=== PATIENT | female | born 2000 | race Caucasian/White ===

== ENCOUNTER 2025-05-24 09:18 | Outpatient (AMB) | payer MEDICAID, SELFPAY ==
[2025-05-24 09:30] VITALS: BP 110/65; PULSE 73; RESP 16; TEMP 36.2; O2SAT 98; BMI 19.7
--- NOTE | 2025-05-24 09:30 | AMB.OBINITIA ---
Vital Signs 05/24/25 09:30 Height 1.78 m Height Method Stated Weight 62.369 kg Weight Measurement Method Standing Scale BMI 19.7 BP 110/65 Blood Pressure Source Automatic Cuff Blood Pressure Location Left Upper Arm Position Sitting Respiration 16 Pulse 73 Pulse Source Monitor Temp 97.2 F Temp Source Oral Pulse Oximetry (%) 98 Oxygen Delivery Method Room Air Allergies/Home Meds Allergies & Medications Allergies No Known Allergies Allergy (Verified 05/24/25 09:34) Medication Reconciliation vits no.130-ferrous fum 27 mg iron-folic acid 800 mcg tablet ( Vitamin) 1 tab PO QDAY pregancy #60 tabs 05/24/25 [Rx] Intake Visit Data Collection New Patient or Established: New Patient (never been to [facility]) Reason for Visit:: OBI Seen by Clinical Staff ONLY (RN/MA): No Invasive Cardiologist Required: No Do You Feel Safe at Home: Yes Authorities Contacted: N/A PCP or OBGYN visit in last 3 months: Yes Hx Now: Yes Are you currently on any form of Control: No Last menstrual period: 03/02/25 Pain Present Currently: No Pain Scale Used: Bravo-Howard/Numerical Pain scale:: 0 Smoking Status Smoking Status: Never smoker Questionnaires Covid-19 Vaccine Questionnaire Has patient been vacinated for Covid-19 Have you been vacinated for Covid-19: Yes PHQ-9 PHQ-2 Over the last 2 weeks, how often have you been bothered by any of the following problems? 1. Little interest or pleasure in doing things: not at all 2. Feeling down, depressed, or hopeless: not at all Total score: 0 PHQ-9 3. Trouble falling or staying asleep, or sleeping too much: Not at all 4. Feeling tired or having little energy: Not at all 5. Poor appetite or overeating: Not at all 6. Feeling bad about yourself - or that you are a failure or have let yourself or your family down: Not at all 7. Trouble concentrating on things, such as reading the newspaper or watching television: Not at all 8. Moving or speaking so slowly that other people could have noticed? - Or the opposite - being so fidgety or restless that you have been moving around a lot more than usual: not at all 9. Thoughts that you would be better off or of hurting yourself in some way: Not at all Total score: 0 If you checked off any problems, how difficult have these problems made it for you to do your work, take care of things at home, or get along with other people?: not difficult at all Source: Developed by Drs. Lucas Wood, Karon Stiles, Manolo Villarreal and colleagues, with an educational brandon from [employer]. Depression screen completed yes Social History Living Situation History Marital Status: Lives With: Family Housing: House Tobacco History Smoking Status: Never smoker Second Hand Smoke Exposure: No Domestic Abuse History Do You Feel Safe at Home: Yes History of Present Illness HPI Narrative 24-year-old 1 para 0 for OBI. Last period March 02, 2025. Estimated due date December 07, 2025. Unplanned but patient and partner are happy. Denies SAB complaints. Patient feels tired but overall she is doing well. Denies social habits. Denies surgery. Denies chronic illness. Patient is taking vitamins and folic acid. Patient works in the [employer] Initial Visit Menstrual History Menstrual reliability: definite Flow: normal Menstrual regularity: regular Monthly: Yes Age at menarche: 14 On control pills at conception: No OB History : 1 Para: 0 Hx # Pregnancies: 0 Hx Total # of Abortions (Spontaneous & Elective): 0 # of Living Children: 0 Infection History & Risk Evaluation History of STDs: none HIV risk evaluation: low risk Hepatitis B risk evaluation: low risk Patient or partner has history of Genital Herpes: No Varicella/chicken pox status: immunized Genetic Screening & History Genetic Screening/Teratology Counseling - Includes patient, baby's father, or anyone in either family with: 1. Patient's age 35 years or older as of estimated date of delivery: No 2. Thalassemia (Portuguese, Russian, Mediterranean, or Background); MCV less than 80: No 3. Neural Tube Defect (Meningomyelocele, Spina Bifida, or Anencephaly): No 4. Congenital Heart Defect: No 5. Down Syndrome: No 6. Cipriano-Sachs (Ashkenazi Temple, Cajun, [place]gu[place] Hungarian): No 7. Brenda Disease (Ashkenazi Temple): No 8. Familial Dysautonomia (Ashkenazi Temple): No 9. Sickle Cell Disease or Trait (): No 10. Hemophilia or other blood disorders: No 11. Muscular Dystrophy: No 12. Cystic Fibrosis: No 13. Menard's Chorea: No 14. Mental Retardation/Autism: No 15. Other inherited genetic or chromosomal disorder: No 16. Maternal Metabolic Disorder (EG,TYPE 1 Diabetes, PKU): No 17. Patient or baby's father had a child with defects not listed above: No 18. Recurrent loss or a stillbirth: No 19. Medications (including supplements, vitamins, herbs or otc drugs)/illicit/recreational drugs/alcohol since last menstrual period: No 20. Any other: No Infection History 1. Live with someone with TB or exposed to TB: No 2. Rash or viral illness since last menstrual period: No 3. Hepatitis B,C: No Other (see comments) Source: [employer] Review of Systems Review of Systems Systems Reviewed: All systems reviewed, normal except as documented Exam General Limitations: no limitations General Appearance: alert, in no apparent distress, comfortable, cooperative, healthy appearing, well developed and well groomed Head Head exam: atraumatic, normocephalic and normal inspection Resp Respiratory exam: Present normal lung sounds bilaterally Card Cardiovascular exam: Present regular rate, normal rhythm and normal heart sounds Abdominal Abdominal exam: Present soft and normal bowel sounds Psych Psychiatric exam: Present normal affect and normal mood Office Procedures OB Clinic LOC & Office Proc's Nursing/Assessment Patient Status: Initial/New Patient OB Clinic Nursing Assessment: Medication Reconciliation, Update PMH in EMR and Vital Signs OB Clinic Coordination of Care: Education Complex Pt/Fam, Consent,records obtained, informed consent, Lab and Imaging orders, Results/Orders obtained and Staff clarify orders Special Needs: Heart tones and Language special needs New Patient Charge New Patient Point Assignment: [id number] New Patient Point Charge: CONTRACT LAW SPECIALIST Level 3 ([id number]) Assessment & Plan Diagnosis / Problem List (1) Encounter for supervision of high risk in first trimester, antepartum: Status: Acute Plan Schedule M appointment with Dr. Mcdonough. For anatomy scan. NIPT with carrier screen, A1c and OB panel today. Discussed comfort measures for first trimester discomforts. Discussed SAB precautions. Discussed diet and weight. May refill vitamins. Return in 4 weeks OB check
== END 2025-05-24 10:12 | disposition home or self-care (01) ==
LOC: HODSOBC 09:18
PROVIDERS: Supervising Provider Advanced Practice Midwife; Visit Provider Advanced Practice Midwife
DX: O09.891 Supervision of other high risk pregnancies, first trimester (principal); Z3A.00 Weeks of gestation of pregnancy not specified
CPT/HCPCS: 99203; G0463

== ENCOUNTER 2025-06-21 15:17 | Outpatient (AMB) | payer MEDICAID, SELFPAY ==
[2025-06-21 15:37] VITALS: BP 106/69; PULSE 70; RESP 17; TEMP 36.7; O2SAT 99; BMI 20.2
--- NOTE | 2025-06-21 15:37 | OBCLNT_ITS ---
Vital Signs 06/21/25 15:37 Height 1.78 m Height Method Stated Weight 64.07 kg Weight Measurement Method Standing Scale BMI 20.2 BP 106/69 Blood Pressure Source Automatic Cuff Blood Pressure Location Right Upper Arm Position Sitting Respiration 17 Pulse 70 Pulse Source Monitor Temp 98.0 F Temp Source Temporal Artery Scan Pulse Oximetry (%) 99 Oxygen Delivery Method Room Air Allergies/Home Meds Allergies & Medications Allergies No Known Allergies Allergy (Verified 06/21/25 15:38) Medication Reconciliation vits no.130-ferrous fum 27 mg iron-folic acid 800 mcg tablet ( Vitamin) 1 tab PO QDAY pregancy #60 tabs 05/24/25 [Rx Confirmed 06/21/25] Intake Visit Data Collection New Patient or Established: Established Patient (seen at [facility] within 3 years) Reason for Visit:: OBC Seen by Clinical Staff ONLY (RN/MA): No Air Conditioning Technician Required: No Do You Feel Safe at Home: Yes Authorities Contacted: N/A PCP or OBGYN visit in last 3 months: Yes Hx Now: Yes Are you currently on any form of Control: No Pain Present Currently: No Pain Scale Used: Bravo-Howard/Numerical Pain scale:: 0 Smoking Status Smoking Status: Never smoker Questionnaires Covid-19 Vaccine Questionnaire Has patient been vacinated for Covid-19 Have you been vacinated for Covid-19: Yes PHQ-9 PHQ-2 Over the last 2 weeks, how often have you been bothered by any of the following problems? 1. Little interest or pleasure in doing things: not at all 2. Feeling down, depressed, or hopeless: not at all Total score: 0 PHQ-9 3. Trouble falling or staying asleep, or sleeping too much: Not at all 4. Feeling tired or having little energy: Not at all 5. Poor appetite or overeating: Not at all 6. Feeling bad about yourself - or that you are a failure or have let yourself or your family down: Not at all 7. Trouble concentrating on things, such as reading the newspaper or watching television: Not at all 8. Moving or speaking so slowly that other people could have noticed? - Or the opposite - being so fidgety or restless that you have been moving around a lot more than usual: not at all 9. Thoughts that you would be better off or of hurting yourself in some way: Not at all Total score: 0 If you checked off any problems, how difficult have these problems made it for you to do your work, take care of things at home, or get along with other people?: not difficult at all Source: Developed by Drs. Lucas Wood, Karon Stiles, Manolo Villarreal and colleagues, with an educational brandon from [employer]. Depression screen completed yes Social History Living Situation History Marital Status: Lives With: Family Housing: House Tobacco History Smoking Status: Never smoker Second Hand Smoke Exposure: No Alcohol History Alcohol Intake: Never Domestic Abuse History Do You Feel Safe at Home: Yes Care OB Visit Log OB Flowsheet Initial Weight: Not Recorded Date -?-?-?-?-?-?-?-?-?-?-?-?- EGA Weight BP Alb Glu CTX Pres Fundal ht FHR Mov Dilation Station Effacement Hx Notes Visit Note 05/24/25 -?-?-?-?-?-?-?-?-?-?-?-?- 11w 6d 62.369 kg 110/65 absent unknown 11 154 absent 24-year-old 1 para 0 for OBI. Her last period is March 02, 2025. Estimated due date December 07, 2025. Patient denies leaking, bleeding, contractions Schedule with Dr. Mcdonough for OB scan. OB panel with hemoglobin A1c and carrier screens today. Discussed SAB signs and symptoms and precautions. Continue prenatals which were refilled 06/21/25 -?-?-?-?-?-?-?-?-?-?-?-?- 15w 6d 64.07 kg 106/69 absent unknown 15 154 absent No OB complaints. Doing well. Maternal- medicine appointment is pending aFP today. Reviewed labs. Follow-up on M appointment. Discussed SAB precautions. Return in 4 weeks OB check MARISOL Calculator Estimated Delivery Date Method Current WG Current Estimate 12/07/25 LMP (Certain) 15w 6d Notes Visit Date: 06/21/25 Last Updated by: Hetal Segura CNM 06/06: O+,abs-, rpr;;NR, rubella imm, GBSAG-,HIV-,HC-. GC/CT-. NIPT- /girl, CF/SMA-,A1c: 5.2, UA- Visit Date: 05/24/25 Last Updated by: Hetal Segura CNM 24 yo . LMP 03/02/25. EDC: 12/07/25 Office Procedures OBC Clinic LOC & Office Proc's Nursing/Assessment Patient Status: Established Patient OB Clinic Nursing Assessment: Medication Reconciliation, Update PMH in EMR and Vital Signs OB Clinic Coordination of Care: Complex Care and Chronic Disease 1-5, Education Complex Pt/Fam, Consent,records obtained, informed consent and Staff clarify orders Special Needs: Heart tones Established Patient Charge Established Patient Point Assignment: 120 Established Patient Point Charge: EP Level 4 (120-155) Assessment & Plan Diagnosis / Problem List (1) Encounter for supervision of high risk in second trimester, antepartum: Status: Acute Plan Follow-up on maternal- medicine ultrasound. Discussed labs. Discussed SAB precautions. Continue prenatals. Return in 4 weeks OB check Additional Plan Follow Up: 4 Weeks (obc)
== END 2025-06-21 16:28 | disposition home or self-care (01) ==
LOC: HODSOBC 15:17
PROVIDERS: Supervising Provider Advanced Practice Midwife; Visit Provider Advanced Practice Midwife
DX: O09.92 Supervision of high risk pregnancy, unspecified, second trimester (principal); Z3A.15 15 weeks gestation of pregnancy
CPT/HCPCS: 99214; G0463

== ENCOUNTER 2025-07-26 14:52 | Outpatient (AMB) | payer MEDICAID, SELFPAY ==
[2025-07-26 15:13] VITALS: BP 109/72; PULSE 76; RESP 14; TEMP 36.4; O2SAT 98; BMI 21.2
--- NOTE | 2025-07-26 15:13 | AMB.OBPNC ---
Vital Signs 07/26/25 15:13 Height 1.78 m Height Method Stated Weight 67.245 kg Weight Measurement Method Standing Scale BMI 21.2 BP 109/72 Blood Pressure Source Automatic Cuff Blood Pressure Location Left Upper Arm Position Sitting Respiration 14 Pulse 76 Pulse Source Monitor Temp 97.6 F Temp Source Oral Pulse Oximetry (%) 98 Oxygen Delivery Method Room Air Allergies/Home Meds Allergies & Medications Allergies No Known Allergies Allergy (Verified 07/26/25 15:19) Medication Reconciliation vits no.130-ferrous fum 27 mg iron-folic acid 800 mcg tablet ( Vitamin) 1 tab PO QDAY pregancy #60 tabs 05/24/25 [Rx Confirmed 07/26/25] vits no.130-ferrous fum 27 mg iron-folic acid 800 mcg tablet ( Vitamin) 1 tab PO QDAY pregancy #60 tabs 07/26/25 [Rx] Immunizations Immunizations Flu Vaccine in the Last 12 Months: No Flu Vaccine Exclusion Criteria: Refused by Patient Care OB Visit Log OB Flowsheet Initial Weight: Not Recorded Date <del>?</del> EGA Weight BP Alb Glu CTX Pres Fundal ht FHR Mov Dilation Station Effacement Hx Notes Visit Note 05/24/25 <del>?</del> 11w 6d 62.369 kg 110/65 absent unknown 11 154 absent 24-year-old 1 para 0 for OBI. Her last period is March 02, 2025. Estimated due date December 07, 2025. Patient denies leaking, bleeding, contractions Schedule with Dr. Mcdonough for OB scan. OB panel with hemoglobin A1c and carrier screens today. Discussed SAB signs and symptoms and precautions. Continue prenatals which were refilled 06/21/25 <del>?</del> 15w 6d 64.07 kg 106/69 absent unknown 15 154 absent No OB complaints. Doing well. Maternal- medicine appointment is pending aFP today. Reviewed labs. Follow-up on MFM appointment. Discussed SAB precautions. Return in 4 weeks OB check 07/26/25 <del>?</del> 20w 6d 67.245 kg 109/72 absent unknown 20 155 absent No OB complaints. Denies leaking, bleeding, contractions. Patient reports she is going to [place] the [place]. Refill prenatals. Patient has an appointment at [facility] in September for her anatomy scan. Discussed labor precautions increase fluids. Return in 4 weeks OB check MARISOL Calculator Estimated Delivery Date Method Current WG Current Estimate 12/07/25 LMP (Certain) 20w 6d Notes Visit Date: 07/26/25 Last Updated by: Hetal Segura CNM AFP- on 06/29 Visit Date: 06/21/25 Last Updated by: Hetal Segura CNM 06/06: O+,abs-, rpr;;NR, rubella imm, GBSAG-,HIV-,HC-. GC/CT-. NIPT-/girl, CF/SMA-,A1c: 5.2, UA- Visit Date: 05/24/25 Last Updated by: Hetal Segura CNM 24 yo . LMP 03/02/25. EDC: 12/07/25 Office Procedures OBC Clinic LOC & Office Proc's Nursing/Assessment Patient Status: Established Patient OB Clinic Nursing Assessment: Medication Reconciliation, Update PMH in EMR and Vital Signs OB Clinic Coordination of Care: Complex Care and Chronic Disease 1-5, Consent,records obtained, informed consent, Education Simp Pt/Fam, 1 Ins Authorization, Lab and Imaging orders, Results/Orders obtained and Staff clarify orders Special Needs: Heart tones Established Patient Charge Established Patient Point Assignment: 150 Established Patient Point Charge: EP Level 4 (120-155) Assessment & Plan Diagnosis / Problem List (1) Encounter for supervision of high risk in second trimester, antepartum: Status: Acute Plan Patient is going to [place] for the holidays. Refill prenatals. Discussed labor precautions. Discussed danger signs symptoms and ER precautions. Patient has a follow-up ultrasound in September with maternal- medicine in [place]. Additional Plan Follow Up: 4 Weeks (obc)
== END 2025-07-26 15:27 | disposition home or self-care (01) ==
LOC: HODSOBC 14:52
PROVIDERS: Supervising Provider Advanced Practice Midwife; Visit Provider Advanced Practice Midwife
DX: O09.92 Supervision of high risk pregnancy, unspecified, second trimester (principal); Z3A.20 20 weeks gestation of pregnancy
CPT/HCPCS: 99214; G0463